=== PATIENT | male | born 1945 | race Caucasian/White ===

== ENCOUNTER 2021-02-24 11:21 | Emergency (ER) | payer MEDICARE, MEDICAID ==
[~2021-02-24] VITALS: Ht 180.3 cm; Wt 87.0 kg
[2021-02-24 12:31] LABS: EOSINOPHILS % 6.2 % (0.0-5.0); HEMATOCRIT. 47.4 % (42.0-52.0); LYMPHOCYTES % 38.4 % (20.0-50.0); MEAN CORPUSCULAR HEMOGLOBIN 31.3 pg (28.0-32.0); MEAN CORPUSCULAR VOLUME 92.8 fL (80.0-94.0); MEAN PLATELET VOLUME 8.8 fl (7.4-10.4); MONOCYTES % 6.6 % (2.0-8.0); NEUTROPHILS % 47.8 % (40.0-76.0); PLATELET 169 x1000/uL (130-400); RED BLOOD CELL COUNT 5.11 mill/uL (4.7-6.1); RED CELL DISTRIBUTION WIDTH 12.8 % (11.6-14.6)
[2021-02-24 12:37] LABS: CHLORIDE 104 mEq/L (98-107)
[2021-02-24] MEDS ORDERED: MECLIZINE 25MG TABLET PO ONE (13:30)
[2021-02-24] MEDS ORDERED: DEXTROSE 50% WATER 50ML SYRINGE IV ONE (15:15)
[2021-02-24 21:16] VITALS: BP 153/80
== END 2021-02-24 22:00 | disposition short-term general hospital (02) ==
LOC: ER 11:21 → CANBEDREQ 02-25 07:31
DX: E16.2 Hypoglycemia, unspecified (principal); R42 Dizziness and giddiness; I10 Essential (primary) hypertension; F41.9 Anxiety disorder, unspecified; F32.A Depression, unspecified; E78.00 Pure hypercholesterolemia, unspecified; I25.2 Old myocardial infarction; Z98.61 Coronary angioplasty status
CPT/HCPCS: 36415; 70450; 71045; 80053; 82962; 83880; 84484; 85025; 93005; 99285; Z7610; J8597

== ENCOUNTER 2021-03-09 10:18 | Inpatient (IN) | payer MEDICARE, OTHER ==
[~2021-03-09] VITALS: Ht 172.7 cm; Wt 81.3 kg
[2021-03-09 11:18] LABS: BASOPHILS % 0.9 % (0.0-2.0); HEMATOCRIT. 49.1 % (42.0-52.0); HEMOGLOBIN. 16.6 g/dL (14.0-18.0); LYMPHOCYTES % 32.6 % (20.0-50.0); MEAN CORPUSCULAR HEMOGLOBIN 31.4 pg (28.0-32.0); MEAN PLATELET VOLUME 9.6 fl (7.4-10.4); MONOCYTES % 8.1 % (2.0-8.0); NEUTROPHILS % 54.4 % (40.0-76.0); PLATELET 170 x1000/uL (130-400); RED BLOOD CELL COUNT 5.28 mill/uL (4.7-6.1)
[2021-03-09 11:29] LABS: CHLORIDE 108 mEq/L (98-107)
[2021-03-09 12:42] LABS: CLARITY URINE CLEAR (CLEAR); COLOR URINE YELLOW (YELLOW); KETONES URINE TRACE (NEGATIVE); LEUKOCYTE ESTERASE URINE NEGATIVE (NEGATIVE); NITRITE URINE NEGATIVE (NEGATIVE); OCCULT BLOOD URINE NEGATIVE (NEGATIVE); PROTEIN URINE NEGATIVE (NEGATIVE); SPECIFIC GRAVITY URINE 1.029 (1.005-1.030)
[2021-03-09] MEDS: AMLODIPINE 10MG TABLET PO SCH (17:00)
[2021-03-09] MEDS ORDERED: ONDANSETRON HCL 4MG/2ML INJ IV PRN (17:00)
[2021-03-09] MEDS ORDERED: HYDRALAZINE 20MG/ML VIAL IV PRN (17:00)
[2021-03-09] MEDS ORDERED: DEXT 5%/0.45% NACL 500ML 1,000 ML IV ONE (17:00)
[2021-03-09] MEDS: DEXT 5%/0.45% NACL 1000ML 1,000 ML IV SCH (17:30)
[2021-03-09] MEDS ORDERED: LORAZEPAM 2MG/ML CPJ IV PRN (18:30)
[2021-03-09 22:10] VITALS: BP 149/89
[2021-03-10] MEDS: DEXT 5%/0.45% NACL 1000ML 1,000 ML IV SCH ×2 (06:28→21:40)
[2021-03-10 06:40] LABS: BASOPHILS % 0.5 % (0.0-2.0); EOSINOPHILS % 4.7 % (0.0-5.0); HEMATOCRIT. 44.5 % (42.0-52.0); HEMOGLOBIN. 15.2 g/dL (14.0-18.0); MEAN CORPUSCULAR HEMOGLOBIN 31.7 pg (28.0-32.0); MEAN CORPUSCULAR VOLUME 92.4 fL (80.0-94.0); MEAN PLATELET VOLUME 9.8 fl (7.4-10.4); MONOCYTES % 8.5 % (2.0-8.0); NEUTROPHILS % 57.3 % (40.0-76.0); PLATELET 166 x1000/uL (130-400); RED BLOOD CELL COUNT 4.81 mill/uL (4.7-6.1); RED CELL DISTRIBUTION WIDTH 12.9 % (11.6-14.6)
[2021-03-10 06:41] LABS: CHLORIDE 108 mEq/L (98-107)
[2021-03-10 06:52] LABS: LDL CHOLESTEROL 107 mg/dL (5-100)
[2021-03-10 06:53] LABS: HDL CHOLESTEROL 35 mg/dL (40-59)
[2021-03-10 08:00] VITALS: BP 139/78
[2021-03-10] MEDS: AMLODIPINE 10MG TABLET PO SCH (09:00)
[2021-03-10 12:00] VITALS: BP 143/75
[2021-03-10 16:00] VITALS: BP 153/82
[2021-03-10] MEDS: ENOXAPARIN 40MG/0.4ML SYR SUBCUT SCH (19:56)
[2021-03-10 20:00] VITALS: BP 149/75
[2021-03-11] VITALS (7 sets, daily range): BP systolic 138–166; BP diastolic 72–87
[2021-03-11] MEDS ORDERED: DEXTROSE 50% WATER 50ML SYRINGE IV PRN (05:45)
[2021-03-11] MEDS: INSULIN LISPRO 100 UNITS/ML SUBCUT SCH ×4 (07:04→21:00)
[2021-03-11] MEDS: BLOOD SUGAR DIAGNOSTIC STRIP TEST SCH ×4 (07:04→21:00)
[2021-03-11] MEDS: AMLODIPINE 10MG TABLET PO SCH ×2 (09:00→09:25)
[2021-03-11] MEDS: DEXT 5%/0.45% NACL 1000ML 1,000 ML IV SCH ×2 (09:25→22:03)
[2021-03-11] MEDS: ENOXAPARIN 40MG/0.4ML SYR SUBCUT SCH (17:57)
[2021-03-11] MEDS: ACETAMINOPHEN 650MG SUPP PR PRN (22:10)
[2021-03-12] VITALS: BP 147/85
[2021-03-12] MEDS: DEXT 5%/0.45% NACL 1000ML 1,000 ML IV SCH (03:13)
[2021-03-12 04:00] VITALS: BP 153/70
[2021-03-12] MEDS: ACETAMINOPHEN 650MG SUPP PR PRN (05:38)
[2021-03-12 06:04] LABS: BASOPHILS % 0.6 % (0.0-2.0); EOSINOPHILS % 1.8 % (0.0-5.0); HEMATOCRIT. 46.7 % (42.0-52.0); HEMOGLOBIN. 15.7 g/dL (14.0-18.0); MEAN CORPUSCULAR HEMOGLOBIN 31.5 pg (28.0-32.0); MEAN CORPUSCULAR VOLUME 93.6 fL (80.0-94.0); MEAN PLATELET VOLUME 10.2 fl (7.4-10.4); MONOCYTES % 11.5 % (2.0-8.0); NEUTROPHILS % 61.1 % (40.0-76.0); PLATELET 152 x1000/uL (130-400); RED BLOOD CELL COUNT 4.99 mill/uL (4.7-6.1); RED CELL DISTRIBUTION WIDTH 13.1 % (11.6-14.6)
[2021-03-12] MEDS: INSULIN LISPRO 100 UNITS/ML SUBCUT SCH ×4 (06:29→21:00)
[2021-03-12] MEDS: BLOOD SUGAR DIAGNOSTIC STRIP TEST SCH ×4 (06:29→21:00)
[2021-03-12 07:40] LABS: CHLORIDE 108 mEq/L (98-107)
[2021-03-12 08:00] VITALS: BP 140/75
[2021-03-12] MEDS: AMLODIPINE 10MG TABLET PO SCH (09:00)
[2021-03-12] MEDS ORDERED: IPRATROPIUM/ALBUTEROL 0.5-3(2.5)MG/3ML NEB HHN PRN (10:00)
[2021-03-12] MEDS: HYDRALAZINE 20MG/ML VIAL IV SCH ×2 (11:02→17:04)
[2021-03-12 12:00] VITALS: BP 148/70
[2021-03-12 16:00] VITALS: BP 146/84
[2021-03-12] MEDS: ENOXAPARIN 40MG/0.4ML SYR SUBCUT SCH (16:27)
[2021-03-12 20:00] VITALS: BP 145/85
[2021-03-12] MEDS: PANTOPRAZOLE SODIUM 40 MG/VIAL IV SCH (21:57)
[2021-03-13] VITALS: BP 154/83
[2021-03-13] MEDS: DEXT 5%/0.45% NACL 1000ML 1,000 ML IV SCH ×2 (01:00→13:36)
[2021-03-13 04:00] VITALS: BP 148/87
[2021-03-13] MEDS: HYDRALAZINE 20MG/ML VIAL IV SCH ×4 (06:00→17:07)
[2021-03-13 06:52] LABS: INR 1.1; PROTHROMBIN TIME 11.6 sec (9.6-11.0)
[2021-03-13 06:57] LABS: BASOPHILS % 0.4 % (0.0-2.0); EOSINOPHILS % 1.1 % (0.0-5.0); HEMATOCRIT. 47.6 % (42.0-52.0); HEMOGLOBIN. 16.6 g/dL (14.0-18.0); LYMPHOCYTES % 18.5 % (20.0-50.0); MEAN CORPUSCULAR HEMOGLOBIN 32.2 pg (28.0-32.0); MEAN CORPUSCULAR VOLUME 92.7 fL (80.0-94.0); MEAN PLATELET VOLUME 9.5 fl (7.4-10.4); MONOCYTES % 8.4 % (2.0-8.0); NEUTROPHILS % 71.6 % (40.0-76.0); PLATELET 150 x1000/uL (130-400); RED BLOOD CELL COUNT 5.14 mill/uL (4.7-6.1)
[2021-03-13] MEDS: AMLODIPINE 10MG TABLET PO SCH (07:12)
[2021-03-13] MEDS: INSULIN LISPRO 100 UNITS/ML SUBCUT SCH ×4 (07:12→20:23)
[2021-03-13] MEDS: BLOOD SUGAR DIAGNOSTIC STRIP TEST SCH ×4 (07:12→20:12)
[2021-03-13 07:14] LABS: CHLORIDE 109 mEq/L (98-107)
[2021-03-13 08:00] VITALS: BP 147/88
[2021-03-13] MEDS: PANTOPRAZOLE SODIUM 40 MG/VIAL IV SCH ×2 (09:32→20:18)
[2021-03-13] MEDS ORDERED: CEFAZOLIN 1000MG PREMIX 50 ML IV ONE (10:00)
[2021-03-13] MEDS ORDERED: PROPOFOL 200MG/20ML VIAL IV ONE (11:44)
[2021-03-13] MEDS ORDERED: LIDOCAINE HCL 1% 20ML VIAL (Pyxis) INJ ONE (12:03)
[2021-03-13] MEDS ORDERED: DEXAMETHASONE 4MG/ML 1ML VIAL ONE (12:03)
[2021-03-13] MEDS ORDERED: ONDANSETRON HCL 4MG/2ML INJ ONE (12:03)
[2021-03-13 13:15] VITALS: BP 179/87
[2021-03-13 16:00] VITALS: BP 140/76
[2021-03-13] MEDS: ENOXAPARIN 40MG/0.4ML SYR SUBCUT SCH (17:06)
[2021-03-13 20:00] VITALS: BP 141/78
[2021-03-14] VITALS: BP 98/58
[2021-03-14] MEDS: HYDRALAZINE 20MG/ML VIAL IV SCH ×2 (00:41→05:26)
[2021-03-14] MEDS: DEXT 5%/0.45% NACL 1000ML 1,000 ML IV SCH (02:34)
[2021-03-14 04:00] VITALS: BP 152/84
[2021-03-14] MEDS: BLOOD SUGAR DIAGNOSTIC STRIP TEST SCH ×4 (05:20→20:36)
[2021-03-14] MEDS: METOCLOPRAMIDE HCL 10MG/2ML VIAL IV SCH ×4 (05:26→23:15)
[2021-03-14] MEDS: INSULIN LISPRO 100 UNITS/ML SUBCUT SCH ×4 (05:47→20:36)
[2021-03-14 08:00] VITALS: BP 138/76
[2021-03-14] MEDS: AMLODIPINE 10MG TABLET PO SCH (09:28)
[2021-03-14] MEDS: PANTOPRAZOLE SODIUM 40 MG/VIAL IV SCH ×2 (09:28→20:36)
[2021-03-14] MEDS: ASPIRIN 81MG TABLET PO SCH (10:11)
[2021-03-14 12:00] VITALS: BP 129/75
[2021-03-14] MEDS: HYDRALAZINE HCL 10MG TABLET PO SCH ×2 (14:26→21:22)
[2021-03-14 16:00] VITALS: BP 140/79
[2021-03-14] MEDS: ENOXAPARIN 40MG/0.4ML SYR SUBCUT SCH (18:27)
[2021-03-14 20:00] VITALS: BP 144/85
[2021-03-15] VITALS: BP 137/75
[2021-03-15 04:00] VITALS: BP 116/72
[2021-03-15] MEDS: HYDRALAZINE HCL 10MG TABLET PO SCH ×3 (05:44→22:31)
[2021-03-15] MEDS: METOCLOPRAMIDE HCL 10MG/2ML VIAL IV SCH ×3 (05:44→16:47)
[2021-03-15 05:53] LABS: BASOPHILS % 0.7 % (0.0-2.0); EOSINOPHILS % 0.2 % (0.0-5.0); HEMATOCRIT. 47.3 % (42.0-52.0); HEMOGLOBIN. 16.3 g/dL (14.0-18.0); LYMPHOCYTES % 15.8 % (20.0-50.0); MEAN CORPUSCULAR HEMOGLOBIN 32.4 pg (28.0-32.0); MEAN CORPUSCULAR VOLUME 93.9 fL (80.0-94.0); MEAN PLATELET VOLUME 10.1 fl (7.4-10.4); MONOCYTES % 10.3 % (2.0-8.0); PLATELET 161 x1000/uL (130-400); RED BLOOD CELL COUNT 5.03 mill/uL (4.7-6.1); RED CELL DISTRIBUTION WIDTH 13.4 % (11.6-14.6)
[2021-03-15 06:02] LABS: CHLORIDE 107 mEq/L (98-107)
[2021-03-15] MEDS: BLOOD SUGAR DIAGNOSTIC STRIP TEST SCH ×4 (06:31→20:45)
[2021-03-15] MEDS: INSULIN LISPRO 100 UNITS/ML SUBCUT SCH ×4 (06:32→20:43)
[2021-03-15 07:54] VITALS: BP 112/80
[2021-03-15] MEDS: ASPIRIN 81MG TABLET PO SCH (08:28)
[2021-03-15] MEDS: AMLODIPINE 10MG TABLET PO SCH (08:28)
[2021-03-15] MEDS: PANTOPRAZOLE SODIUM 40 MG/VIAL IV SCH ×2 (08:28→20:42)
[2021-03-15] MEDS: ACETAMINOPHEN 325MG TABLET PO PRN ×2 (08:29→15:50)
[2021-03-15] MEDS ORDERED: VANCOMYCIN 1250MG in DEXTROSE 5% WATER 250ML IV SCH (10:00)
[2021-03-15] MEDS ORDERED: PIPERACILLIN/TAZOBACTAM 3.375G in DEXT 5% WATER 50ML IV SCH (11:30)
[2021-03-15 12:00] VITALS: BP 129/78
[2021-03-15 15:53] VITALS: BP 135/90
[2021-03-15] MEDS: PIPERACILLIN/TAZOBACTAM 3.375 G in DEXTROSE 5% WATER 50 ML IV SCH ×2 (16:46→22:46)
[2021-03-15] MEDS: ENOXAPARIN 40MG/0.4ML SYR SUBCUT SCH (16:47)
[2021-03-15 20:00] VITALS: BP 137/89
[2021-03-15] MEDS: VANCOMYCIN 750 MG PREMIX 150 ML IV SCH (20:42)
[2021-03-16] VITALS (7 sets, daily range): BP systolic 121–165; BP diastolic 57–98
[2021-03-16] MEDS: METOCLOPRAMIDE HCL 10MG/2ML VIAL IV SCH ×5 (00:17→23:21)
[2021-03-16] MEDS: ACETAMINOPHEN 325MG TABLET PO PRN ×2 (04:40→20:13)
[2021-03-16] MEDS: PIPERACILLIN/TAZOBACTAM 3.375 G in DEXTROSE 5% WATER 50 ML IV SCH ×3 (05:22→21:37)
[2021-03-16] MEDS: HYDRALAZINE HCL 10MG TABLET PO SCH ×3 (05:22→21:37)
[2021-03-16 06:55] LABS: BASOPHILS % 0.7 % (0.0-2.0); EOSINOPHILS % 0.4 % (0.0-5.0); HEMATOCRIT. 48.3 % (42.0-52.0); HEMOGLOBIN. 16.9 g/dL (14.0-18.0); LYMPHOCYTES % 18.7 % (20.0-50.0); MEAN CORPUSCULAR HEMOGLOBIN 32.8 pg (28.0-32.0); MEAN CORPUSCULAR VOLUME 93.5 fL (80.0-94.0); MEAN PLATELET VOLUME 9.3 fl (7.4-10.4); MONOCYTES % 13.9 % (2.0-8.0); NEUTROPHILS % 66.3 % (40.0-76.0); PLATELET 185 x1000/uL (130-400); RED BLOOD CELL COUNT 5.16 mill/uL (4.7-6.1)
[2021-03-16] MEDS: INSULIN LISPRO 100 UNITS/ML SUBCUT SCH ×4 (06:57→20:28)
[2021-03-16] MEDS: BLOOD SUGAR DIAGNOSTIC STRIP TEST SCH ×4 (06:57→20:28)
[2021-03-16 07:22] LABS: CHLORIDE 107 mEq/L (98-107)
[2021-03-16] MEDS: FAMOTIDINE 20MG/2ML VIAL IV SCH ×2 (08:14→20:13)
[2021-03-16] MEDS: AMLODIPINE 10MG TABLET PO SCH (08:14)
[2021-03-16] MEDS: ASPIRIN 81MG TABLET PO SCH (08:14)
[2021-03-16] MEDS: VANCOMYCIN 750 MG PREMIX 150 ML IV SCH ×2 (08:14→20:13)
[2021-03-16] MEDS: ENOXAPARIN 40MG/0.4ML SYR SUBCUT SCH (17:13)
[2021-03-17] VITALS: BP 128/76
[2021-03-17 04:00] VITALS: BP 132/79
[2021-03-17] MEDS: METOCLOPRAMIDE HCL 10MG/2ML VIAL IV SCH ×2 (05:23→13:15)
[2021-03-17] MEDS: HYDRALAZINE HCL 10MG TABLET PO SCH ×3 (05:23→21:18)
[2021-03-17] MEDS: PIPERACILLIN/TAZOBACTAM 3.375 G in DEXTROSE 5% WATER 50 ML IV SCH ×3 (05:24→23:09)
[2021-03-17] MEDS: BLOOD SUGAR DIAGNOSTIC STRIP TEST SCH ×4 (06:18→21:17)
[2021-03-17] MEDS: INSULIN LISPRO 100 UNITS/ML SUBCUT SCH ×4 (06:18→21:00)
[2021-03-17 07:01] LABS: HEMATOCRIT. 51.2 % (42.0-52.0); HEMOGLOBIN. 16.4 g/dL (14.0-18.0); MEAN CORPUSCULAR HEMOGLOBIN 30.4 pg (28.0-32.0); MEAN CORPUSCULAR VOLUME 94.6 fL (80.0-94.0); RED BLOOD CELL COUNT 5.41 mill/uL (4.7-6.1); RED CELL DISTRIBUTION WIDTH 13.3 % (11.6-14.6)
[2021-03-17 07:37] LABS: CHLORIDE 107 mEq/L (98-107)
[2021-03-17 07:51] VITALS: BP 124/78
[2021-03-17] MEDS: VANCOMYCIN 750 MG PREMIX 150 ML IV SCH (08:17)
[2021-03-17] MEDS: ACETAMINOPHEN 325MG TABLET PO PRN (08:18)
[2021-03-17] MEDS: ASPIRIN 81MG TABLET PO SCH (08:18)
[2021-03-17] MEDS: FAMOTIDINE 20MG/2ML VIAL IV SCH ×2 (08:18→21:17)
[2021-03-17] MEDS: AMLODIPINE 10MG TABLET PO SCH (08:19)
[2021-03-17 10:28] LABS: PLATELET 190 x1000/uL (130-400)
[2021-03-17 10:38] LABS: ATYPICAL LYMPHOCYTES 17; NUCLEATED RED BLOOD CELLS 1 /100 WBC
[2021-03-17 11:57] VITALS: BP 127/75
[2021-03-17] MEDS: VANCOMYCIN 1 G PREMIX 200 ML IV SCH ×2 (15:12→15:54)
[2021-03-17] MEDS ORDERED: ACETAMINOPHEN 650MG SUPP PR PRN (15:45)
[2021-03-17 16:09] VITALS: BP 130/71
[2021-03-17] MEDS: ENOXAPARIN 40MG/0.4ML SYR SUBCUT SCH (16:48)
[2021-03-17 20:00] VITALS: BP 129/83
[2021-03-18] VITALS: BP 118/74
[2021-03-18] MEDS: METOCLOPRAMIDE HCL 10MG/2ML VIAL IV SCH ×6 (00:02→23:42)
[2021-03-18 04:00] VITALS: BP 107/60
[2021-03-18] MEDS: HYDRALAZINE HCL 10MG TABLET PO SCH ×3 (05:30→21:22)
[2021-03-18] MEDS: VANCOMYCIN 1 G PREMIX 200 ML IV SCH ×2 (05:32→17:38)
[2021-03-18] MEDS: PIPERACILLIN/TAZOBACTAM 3.375 G in DEXTROSE 5% WATER 50 ML IV SCH ×3 (07:14→21:21)
[2021-03-18] MEDS: BLOOD SUGAR DIAGNOSTIC STRIP TEST SCH ×4 (07:39→21:09)
[2021-03-18] MEDS: INSULIN LISPRO 100 UNITS/ML SUBCUT SCH ×4 (07:39→21:00)
[2021-03-18 08:00] VITALS: BP 118/68
[2021-03-18] MEDS: ASPIRIN 81MG TABLET PO SCH (08:57)
[2021-03-18] MEDS: FAMOTIDINE 20MG/2ML VIAL IV SCH ×2 (08:58→21:08)
[2021-03-18] MEDS: AMLODIPINE 10MG TABLET PO SCH (08:58)
[2021-03-18 12:00] VITALS: BP 101/75
[2021-03-18 16:30] VITALS: BP 121/70
[2021-03-18] MEDS: ENOXAPARIN 40MG/0.4ML SYR SUBCUT SCH (17:39)
[2021-03-18 20:00] VITALS: BP 135/75
[2021-03-19] VITALS: BP 134/76
[2021-03-19 04:00] VITALS: BP 129/76
[2021-03-19] MEDS: VANCOMYCIN 1 G PREMIX 200 ML IV SCH ×2 (05:22→18:19)
[2021-03-19] MEDS: HYDRALAZINE HCL 10MG TABLET PO SCH ×3 (05:22→21:36)
[2021-03-19] MEDS: METOCLOPRAMIDE HCL 10MG/2ML VIAL IV SCH ×3 (05:22→18:19)
[2021-03-19] MEDS: PIPERACILLIN/TAZOBACTAM 3.375 G in DEXTROSE 5% WATER 50 ML IV SCH ×3 (07:21→21:37)
[2021-03-19] MEDS: INSULIN LISPRO 100 UNITS/ML SUBCUT SCH ×4 (07:21→21:00)
[2021-03-19] MEDS: BLOOD SUGAR DIAGNOSTIC STRIP TEST SCH ×4 (07:21→21:14)
[2021-03-19 07:56] LABS: CHLORIDE 110 mEq/L (98-107)
[2021-03-19 08:00] VITALS: BP 136/72
[2021-03-19 08:07] LABS: VANCOMYCIN TROUGH 32.6 ug/mL (5.0-10.0)
[2021-03-19] MEDS: FAMOTIDINE 20MG/2ML VIAL IV SCH ×2 (09:23→21:36)
[2021-03-19] MEDS: ASPIRIN 81MG TABLET PO SCH (09:23)
[2021-03-19] MEDS: AMLODIPINE 10MG TABLET PO SCH (09:23)
[2021-03-19 12:00] VITALS: BP 127/83
[2021-03-19 16:00] VITALS: BP 121/71
[2021-03-19] MEDS: ENOXAPARIN 40MG/0.4ML SYR SUBCUT SCH (18:23)
[2021-03-19 20:00] VITALS: BP 150/81
[2021-03-20] VITALS: BP 155/95
[2021-03-20] MEDS: METOCLOPRAMIDE HCL 10MG/2ML VIAL IV SCH ×4 (00:10→18:17)
[2021-03-20 04:00] VITALS: BP 148/86
[2021-03-20] MEDS: PIPERACILLIN/TAZOBACTAM 3.375 G in DEXTROSE 5% WATER 50 ML IV SCH ×3 (05:43→21:46)
[2021-03-20] MEDS: VANCOMYCIN 1 G PREMIX 200 ML IV SCH ×2 (05:43→19:24)
[2021-03-20] MEDS: HYDRALAZINE HCL 10MG TABLET PO SCH ×3 (05:44→21:46)
[2021-03-20] MEDS: BLOOD SUGAR DIAGNOSTIC STRIP TEST SCH ×4 (06:10→21:00)
[2021-03-20] MEDS: INSULIN LISPRO 100 UNITS/ML SUBCUT SCH ×4 (06:43→21:00)
[2021-03-20 08:00] VITALS: BP 146/84
[2021-03-20 08:30] LABS: BASOPHILS % 0.6 % (0.0-2.0); HEMATOCRIT. 48.5 % (42.0-52.0); HEMOGLOBIN. 16.2 g/dL (14.0-18.0); LYMPHOCYTES % 18.7 % (20.0-50.0); MEAN CORPUSCULAR HEMOGLOBIN 31.4 pg (28.0-32.0); MEAN CORPUSCULAR VOLUME 93.8 fL (80.0-94.0); MEAN PLATELET VOLUME 9.3 fl (7.4-10.4); NEUTROPHILS % 66.7 % (40.0-76.0); PLATELET 252 x1000/uL (130-400); RED BLOOD CELL COUNT 5.17 mill/uL (4.7-6.1); RED CELL DISTRIBUTION WIDTH 13.1 % (11.6-14.6)
[2021-03-20] MEDS: FAMOTIDINE 20MG/2ML VIAL IV SCH ×2 (09:37→20:27)
[2021-03-20] MEDS: ASPIRIN 81MG TABLET PO SCH (09:37)
[2021-03-20] MEDS: AMLODIPINE 10MG TABLET PO SCH (09:38)
[2021-03-20] MEDS: ACETAMINOPHEN 325MG TABLET PO PRN (09:39)
[2021-03-20 11:07] LABS: CHLORIDE 110 mEq/L (98-107)
[2021-03-20 12:00] VITALS: BP 152/86
[2021-03-20 16:00] VITALS: BP 150/80
[2021-03-20] MEDS: ENOXAPARIN 40MG/0.4ML SYR SUBCUT SCH (18:17)
[2021-03-20 20:00] VITALS: BP 141/78
[2021-03-21] VITALS: BP 127/75
[2021-03-21] MEDS: METOCLOPRAMIDE HCL 10MG/2ML VIAL IV SCH ×5 (00:11→23:11)
[2021-03-21 04:00] VITALS: BP 155/88
[2021-03-21] MEDS: HYDRALAZINE HCL 10MG TABLET PO SCH ×3 (05:50→22:24)
[2021-03-21] MEDS: BLOOD SUGAR DIAGNOSTIC STRIP TEST SCH ×4 (06:15→21:00)
[2021-03-21] MEDS: INSULIN LISPRO 100 UNITS/ML SUBCUT SCH ×4 (06:57→21:00)
[2021-03-21 08:00] VITALS: BP 131/72
[2021-03-21] MEDS: AMLODIPINE 10MG TABLET PO SCH (09:17)
[2021-03-21] MEDS: FAMOTIDINE 20MG/2ML VIAL IV SCH ×2 (09:17→22:24)
[2021-03-21] MEDS: ASPIRIN 81MG TABLET PO SCH (09:17)
[2021-03-21 12:00] VITALS: BP 110/65
[2021-03-21 16:00] VITALS: BP 138/75
[2021-03-21] MEDS: ENOXAPARIN 40MG/0.4ML SYR SUBCUT SCH (17:25)
[2021-03-21 20:00] VITALS: BP 139/85
[2021-03-22] VITALS: BP 127/79
[2021-03-22 04:00] VITALS: BP 121/87
[2021-03-22] MEDS: BLOOD SUGAR DIAGNOSTIC STRIP TEST SCH ×4 (06:08→20:54)
[2021-03-22] MEDS: METOCLOPRAMIDE HCL 10MG/2ML VIAL IV SCH (06:37)
[2021-03-22] MEDS: HYDRALAZINE HCL 10MG TABLET PO SCH ×3 (06:38→21:18)
[2021-03-22] MEDS: INSULIN LISPRO 100 UNITS/ML SUBCUT SCH ×4 (06:51→20:54)
[2021-03-22 08:00] VITALS: BP 146/92
[2021-03-22] MEDS: ASPIRIN 81MG TABLET PO SCH (09:21)
[2021-03-22] MEDS: FAMOTIDINE 20MG/2ML VIAL IV SCH ×2 (09:21→20:54)
[2021-03-22] MEDS: AMLODIPINE 10MG TABLET PO SCH (09:22)
[2021-03-22] MEDS ORDERED: LOPERAMIDE HCL 2MG CAPSULE PO PRN (10:30)
[2021-03-22 12:00] VITALS: BP 130/83
[2021-03-22 16:00] VITALS: BP 134/81
[2021-03-22] MEDS: ENOXAPARIN 40MG/0.4ML SYR SUBCUT SCH (17:34)
[2021-03-22 20:00] VITALS: BP 140/85
[2021-03-23] VITALS: BP 131/82
[2021-03-23 04:00] VITALS: BP 125/84
[2021-03-23] MEDS: HYDRALAZINE HCL 10MG TABLET PO SCH ×3 (05:26→21:48)
[2021-03-23] MEDS: BLOOD SUGAR DIAGNOSTIC STRIP TEST SCH ×4 (06:14→20:26)
[2021-03-23] MEDS: INSULIN LISPRO 100 UNITS/ML SUBCUT SCH ×4 (06:14→20:26)
[2021-03-23 08:00] VITALS: BP 111/84
[2021-03-23] MEDS: AMLODIPINE 10MG TABLET PO SCH (08:49)
[2021-03-23] MEDS: FAMOTIDINE 20MG/2ML VIAL IV SCH ×2 (08:49→20:26)
[2021-03-23] MEDS: ASPIRIN 81MG TABLET PO SCH (08:49)
[2021-03-23 12:00] VITALS: BP 132/81
[2021-03-23 16:00] VITALS: BP 140/84
[2021-03-23] MEDS: ENOXAPARIN 40MG/0.4ML SYR SUBCUT SCH (17:16)
[2021-03-23 20:00] VITALS: BP 139/83
[2021-03-23] MEDS: ACETAMINOPHEN 325MG TABLET PO PRN (21:48)
[2021-03-24] VITALS: BP 120/81
[2021-03-24 04:00] VITALS: BP 123/65
[2021-03-24] MEDS: HYDRALAZINE HCL 10MG TABLET PO SCH ×3 (05:38→21:23)
[2021-03-24] MEDS: BLOOD SUGAR DIAGNOSTIC STRIP TEST SCH ×4 (07:10→21:23)
[2021-03-24] MEDS: INSULIN LISPRO 100 UNITS/ML SUBCUT SCH ×4 (07:40→21:25)
[2021-03-24 07:55] LABS: HEMATOCRIT. 54.3 % (42.0-52.0); HEMOGLOBIN. 18.5 g/dL (14.0-18.0); MEAN CORPUSCULAR HEMOGLOBIN 31.6 pg (28.0-32.0); MEAN CORPUSCULAR VOLUME 92.9 fL (80.0-94.0); MEAN PLATELET VOLUME 8.9 fl (7.4-10.4); PLATELET 277 x1000/uL (130-400); RED BLOOD CELL COUNT 5.85 mill/uL (4.7-6.1); RED CELL DISTRIBUTION WIDTH 13.1 % (11.6-14.6)
[2021-03-24 08:00] VITALS: BP 142/82
[2021-03-24 08:36] LABS: CHLORIDE 107 mEq/L (98-107)
[2021-03-24] MEDS: AMLODIPINE 10MG TABLET PO SCH (09:19)
[2021-03-24] MEDS: FAMOTIDINE 20MG/2ML VIAL IV SCH ×2 (09:19→21:22)
[2021-03-24] MEDS: ASPIRIN 81MG TABLET PO SCH (09:19)
[2021-03-24] MEDS: ACETAMINOPHEN 325MG TABLET PO PRN (09:19)
[2021-03-24 12:00] VITALS: BP 128/80
[2021-03-24] MEDS: SODIUM CHLORIDE 0.9% 1,000 ML IV SCH (13:10)
[2021-03-24 14:53] LABS: PLATELET ESTIMATE NORMAL
[2021-03-24 16:00] VITALS: BP 114/78
[2021-03-24] MEDS: ENOXAPARIN 40MG/0.4ML SYR SUBCUT SCH (16:45)
[2021-03-24 20:00] VITALS: BP 101/77
[2021-03-25] VITALS: BP 119/77
[2021-03-25] MEDS: SODIUM CHLORIDE 0.9% 1,000 ML IV SCH (03:03)
[2021-03-25 04:00] VITALS: BP 109/71
[2021-03-25] MEDS: HYDRALAZINE HCL 10MG TABLET PO SCH ×3 (05:30→23:18)
[2021-03-25] MEDS: BLOOD SUGAR DIAGNOSTIC STRIP TEST SCH ×4 (07:07→16:59)
[2021-03-25] MEDS: INSULIN LISPRO 100 UNITS/ML SUBCUT SCH ×4 (07:07→21:00)
[2021-03-25 07:38] LABS: BASOPHILS % 0.7 % (0.0-2.0); HEMATOCRIT. 48.6 % (42.0-52.0); HEMOGLOBIN. 16.3 g/dL (14.0-18.0); LYMPHOCYTES % 21.1 % (20.0-50.0); MEAN CORPUSCULAR HEMOGLOBIN 31.5 pg (28.0-32.0); MEAN CORPUSCULAR VOLUME 93.8 fL (80.0-94.0); MEAN PLATELET VOLUME 9.6 fl (7.4-10.4); MONOCYTES % 9.1 % (2.0-8.0); NEUTROPHILS % 69.1 % (40.0-76.0); PLATELET 252 x1000/uL (130-400); RED BLOOD CELL COUNT 5.18 mill/uL (4.7-6.1); RED CELL DISTRIBUTION WIDTH 13.4 % (11.6-14.6)
[2021-03-25 08:00] VITALS: BP 112/66
[2021-03-25] MEDS: FAMOTIDINE 20MG/2ML VIAL IV SCH ×2 (09:18→23:18)
[2021-03-25] MEDS: AMLODIPINE 10MG TABLET PO SCH (09:18)
[2021-03-25] MEDS: ASPIRIN 81MG TABLET PO SCH (09:18)
[2021-03-25 12:00] VITALS: BP 106/64
[2021-03-25 16:00] VITALS: BP 115/65
[2021-03-25] MEDS: ENOXAPARIN 40MG/0.4ML SYR SUBCUT SCH (16:59)
[2021-03-25 20:00] VITALS: BP 134/74
[2021-03-26] VITALS: BP 118/80
[2021-03-26 04:00] VITALS: BP 121/69
[2021-03-26] MEDS: HYDRALAZINE HCL 10MG TABLET PO SCH ×3 (07:05→21:50)
[2021-03-26] MEDS: INSULIN LISPRO 100 UNITS/ML SUBCUT SCH ×4 (07:12→21:00)
[2021-03-26] MEDS: BLOOD SUGAR DIAGNOSTIC STRIP TEST SCH ×4 (07:12→21:48)
[2021-03-26 08:00] VITALS: BP 123/83
[2021-03-26 08:22] LABS: CHLORIDE 114 mEq/L (98-107)
[2021-03-26 08:41] LABS: BASOPHILS % 0.9 % (0.0-2.0); EOSINOPHILS % 0.2 % (0.0-5.0); HEMATOCRIT. 46.4 % (42.0-52.0); HEMOGLOBIN. 15.9 g/dL (14.0-18.0); LYMPHOCYTES % 23.7 % (20.0-50.0); MEAN CORPUSCULAR HEMOGLOBIN 31.7 pg (28.0-32.0); MEAN CORPUSCULAR VOLUME 92.9 fL (80.0-94.0); MEAN PLATELET VOLUME 9.7 fl (7.4-10.4); MONOCYTES % 8.2 % (2.0-8.0); PLATELET 246 x1000/uL (130-400); RED CELL DISTRIBUTION WIDTH 13.3 % (11.6-14.6)
[2021-03-26] MEDS: FAMOTIDINE 20MG/2ML VIAL IV SCH ×2 (09:35→21:50)
[2021-03-26] MEDS: ASPIRIN 81MG TABLET PO SCH (09:35)
[2021-03-26] MEDS: AMLODIPINE 10MG TABLET PO SCH (09:36)
[2021-03-26] MEDS ORDERED: BISACODYL 10MG SUPP PR PRN (11:15)
[2021-03-26 12:00] VITALS: BP 116/68
[2021-03-26] MEDS: POLYETHYLENE GLYCOL 3350 (17GM) 1 DOSE PACK PO SCH (13:44)
[2021-03-26] MEDS: DOCUSATE SODIUM SUGAR FREE 100MG/10ML UDC NG SCH (13:44)
[2021-03-26] MEDS: METOCLOPRAMIDE HCL 10MG/2ML VIAL IV SCH ×3 (13:54→23:18)
[2021-03-26 16:00] VITALS: BP 112/65
[2021-03-26] MEDS: ENOXAPARIN 40MG/0.4ML SYR SUBCUT SCH (17:28)
[2021-03-26 20:00] VITALS: BP 100/66
[2021-03-27] VITALS: BP 101/60
[2021-03-27 04:00] VITALS: BP 146/74
[2021-03-27] MEDS: HYDRALAZINE HCL 10MG TABLET PO SCH ×3 (05:49→21:06)
[2021-03-27] MEDS: INSULIN LISPRO 100 UNITS/ML SUBCUT SCH ×4 (05:49→21:00)
[2021-03-27] MEDS: BLOOD SUGAR DIAGNOSTIC STRIP TEST SCH ×4 (05:49→21:05)
[2021-03-27] MEDS: METOCLOPRAMIDE HCL 10MG/2ML VIAL IV SCH ×3 (05:49→19:41)
[2021-03-27 08:00] VITALS: BP 131/78
[2021-03-27 08:02] LABS: BASOPHILS % 0.7 % (0.0-2.0); EOSINOPHILS % 0.2 % (0.0-5.0); HEMATOCRIT. 48.2 % (42.0-52.0); HEMOGLOBIN. 16.4 g/dL (14.0-18.0); LYMPHOCYTES % 26.9 % (20.0-50.0); MEAN CORPUSCULAR HEMOGLOBIN 31.5 pg (28.0-32.0); MEAN CORPUSCULAR VOLUME 92.6 fL (80.0-94.0); MEAN PLATELET VOLUME 9.9 fl (7.4-10.4); MONOCYTES % 6.9 % (2.0-8.0); NEUTROPHILS % 65.3 % (40.0-76.0); PLATELET 276 x1000/uL (130-400); RED BLOOD CELL COUNT 5.21 mill/uL (4.7-6.1); RED CELL DISTRIBUTION WIDTH 12.8 % (11.6-14.6)
[2021-03-27 08:13] LABS: CHLORIDE 113 mEq/L (98-107)
[2021-03-27] MEDS: AMLODIPINE 10MG TABLET PO SCH (10:10)
[2021-03-27] MEDS: FAMOTIDINE 20MG/2ML VIAL IV SCH ×2 (10:10→21:05)
[2021-03-27] MEDS: ASPIRIN 81MG TABLET PO SCH (10:10)
[2021-03-27] MEDS: DOCUSATE SODIUM SUGAR FREE 100MG/10ML UDC NG SCH (10:11)
[2021-03-27] MEDS: POLYETHYLENE GLYCOL 3350 (17GM) 1 DOSE PACK PO SCH (10:17)
[2021-03-27 12:00] VITALS: BP 136/73
[2021-03-27 16:00] VITALS: BP 104/68
[2021-03-27] MEDS: ENOXAPARIN 40MG/0.4ML SYR SUBCUT SCH (19:43)
[2021-03-27 20:00] VITALS: BP 138/75
[2021-03-28] VITALS: BP 114/68
[2021-03-28] MEDS: METOCLOPRAMIDE HCL 10MG/2ML VIAL IV SCH ×5 (00:40→23:48)
[2021-03-28 04:00] VITALS: BP 135/77
[2021-03-28] MEDS: BLOOD SUGAR DIAGNOSTIC STRIP TEST SCH ×4 (05:13→20:37)
[2021-03-28] MEDS: HYDRALAZINE HCL 10MG TABLET PO SCH ×3 (05:13→20:37)
[2021-03-28] MEDS: INSULIN LISPRO 100 UNITS/ML SUBCUT SCH ×4 (05:15→20:38)
[2021-03-28 08:00] VITALS: BP 140/90
[2021-03-28] MEDS: ASPIRIN 81MG TABLET PO SCH (10:22)
[2021-03-28] MEDS: FAMOTIDINE 20MG/2ML VIAL IV SCH ×2 (10:22→20:37)
[2021-03-28] MEDS: DOCUSATE SODIUM SUGAR FREE 100MG/10ML UDC NG SCH (10:22)
[2021-03-28] MEDS: AMLODIPINE 10MG TABLET PO SCH (10:23)
[2021-03-28] MEDS: POLYETHYLENE GLYCOL 3350 (17GM) 1 DOSE PACK PO SCH (10:23)
[2021-03-28] MEDS ORDERED: LACTULOSE 20G/30ML UDC PO PRN (10:30)
[2021-03-28 12:00] VITALS: BP 130/85
[2021-03-28 16:00] VITALS: BP 158/89
[2021-03-28] MEDS: ENOXAPARIN 40MG/0.4ML SYR SUBCUT SCH (18:01)
[2021-03-28 20:00] VITALS: BP 129/74
[2021-03-29] VITALS: BP 111/68
[2021-03-29 04:00] VITALS: BP 140/87
[2021-03-29] MEDS: METOCLOPRAMIDE HCL 10MG/2ML VIAL IV SCH ×3 (05:48→17:50)
[2021-03-29] MEDS: HYDRALAZINE HCL 10MG TABLET PO SCH ×3 (05:49→20:27)
[2021-03-29] MEDS: INSULIN LISPRO 100 UNITS/ML SUBCUT SCH ×4 (05:49→20:35)
[2021-03-29] MEDS: BLOOD SUGAR DIAGNOSTIC STRIP TEST SCH ×4 (05:49→20:27)
[2021-03-29 08:00] VITALS: BP 128/84
[2021-03-29] MEDS: DOCUSATE SODIUM SUGAR FREE 100MG/10ML UDC NG SCH (08:55)
[2021-03-29] MEDS: FAMOTIDINE 20MG/2ML VIAL IV SCH ×2 (08:55→20:26)
[2021-03-29] MEDS: POLYETHYLENE GLYCOL 3350 (17GM) 1 DOSE PACK PO SCH (08:55)
[2021-03-29] MEDS: ASPIRIN 81MG TABLET PO SCH (08:57)
[2021-03-29] MEDS: AMLODIPINE 10MG TABLET PO SCH (09:06)
[2021-03-29 12:00] VITALS: BP 139/94
[2021-03-29 16:00] VITALS: BP 128/80
[2021-03-29] MEDS: ENOXAPARIN 40MG/0.4ML SYR SUBCUT SCH (17:22)
[2021-03-29 20:00] VITALS: BP 147/98
[2021-03-30] VITALS: BP 141/87
[2021-03-30] MEDS: METOCLOPRAMIDE HCL 10MG/2ML VIAL IV SCH ×4 (01:45→17:04)
[2021-03-30 04:00] VITALS: BP 139/85
[2021-03-30] MEDS: BLOOD SUGAR DIAGNOSTIC STRIP TEST SCH ×4 (05:24→20:33)
[2021-03-30] MEDS: HYDRALAZINE HCL 10MG TABLET PO SCH ×3 (05:24→20:33)
[2021-03-30] MEDS: INSULIN LISPRO 100 UNITS/ML SUBCUT SCH ×4 (05:25→20:38)
[2021-03-30 08:00] VITALS: BP 120/87
[2021-03-30] MEDS: DOCUSATE SODIUM SUGAR FREE 100MG/10ML UDC NG SCH (09:29)
[2021-03-30] MEDS: ASPIRIN 81MG TABLET PO SCH (09:31)
[2021-03-30] MEDS: FAMOTIDINE 20MG/2ML VIAL IV SCH ×2 (09:31→20:33)
[2021-03-30] MEDS: AMLODIPINE 10MG TABLET PO SCH (09:31)
[2021-03-30] MEDS: POLYETHYLENE GLYCOL 3350 (17GM) 1 DOSE PACK PO SCH (09:35)
[2021-03-30 12:00] VITALS: BP 136/90
[2021-03-30 16:00] VITALS: BP 126/83
[2021-03-30] MEDS: ENOXAPARIN 40MG/0.4ML SYR SUBCUT SCH (17:05)
[2021-03-30 20:00] VITALS: BP 137/97
[2021-03-31] VITALS: BP 128/89
[2021-03-31] MEDS: METOCLOPRAMIDE HCL 10MG/2ML VIAL IV SCH ×4 (01:38→17:25)
[2021-03-31 04:00] VITALS: BP 146/99
[2021-03-31] MEDS: HYDRALAZINE HCL 10MG TABLET PO SCH ×3 (05:11→21:01)
[2021-03-31] MEDS: BLOOD SUGAR DIAGNOSTIC STRIP TEST SCH ×4 (05:11→20:38)
[2021-03-31] MEDS: INSULIN LISPRO 100 UNITS/ML SUBCUT SCH ×4 (05:11→21:01)
[2021-03-31 08:00] VITALS: BP 147/94
[2021-03-31] MEDS: ASPIRIN 81MG TABLET PO SCH (09:09)
[2021-03-31] MEDS: DOCUSATE SODIUM SUGAR FREE 100MG/10ML UDC NG SCH (09:09)
[2021-03-31] MEDS: FAMOTIDINE 20MG/2ML VIAL IV SCH ×2 (09:10→20:48)
[2021-03-31] MEDS: AMLODIPINE 10MG TABLET PO SCH (09:10)
[2021-03-31] MEDS: POLYETHYLENE GLYCOL 3350 (17GM) 1 DOSE PACK PO SCH (09:11)
[2021-03-31 12:00] VITALS: BP 138/91
[2021-03-31 16:00] VITALS: BP 126/87
[2021-03-31] MEDS: ENOXAPARIN 40MG/0.4ML SYR SUBCUT SCH (17:32)
[2021-03-31 20:00] VITALS: BP 133/82
[2021-04-01] VITALS (8 sets, daily range): BP systolic 100–151; BP diastolic 62–88
[2021-04-01] MEDS: METOCLOPRAMIDE HCL 10MG/2ML VIAL IV SCH ×4 (01:46→17:23)
[2021-04-01] MEDS: BLOOD SUGAR DIAGNOSTIC STRIP TEST SCH ×4 (05:03→19:41)
[2021-04-01] MEDS: HYDRALAZINE HCL 10MG TABLET PO SCH ×3 (05:20→21:47)
[2021-04-01] MEDS: INSULIN LISPRO 100 UNITS/ML SUBCUT SCH ×4 (05:31→21:58)
[2021-04-01] MEDS: FAMOTIDINE 20MG/2ML VIAL IV SCH ×2 (09:45→21:45)
[2021-04-01] MEDS: DOCUSATE SODIUM SUGAR FREE 100MG/10ML UDC NG SCH (09:45)
[2021-04-01] MEDS: ASPIRIN 81MG TABLET PO SCH (09:45)
[2021-04-01] MEDS: AMLODIPINE 10MG TABLET PO SCH (09:46)
[2021-04-01] MEDS: POLYETHYLENE GLYCOL 3350 (17GM) 1 DOSE PACK PO SCH (09:46)
[2021-04-01 11:02] LABS: BASOPHILS % 0.7 % (0.0-2.0); HEMATOCRIT. 59.1 % (42.0-52.0); HEMOGLOBIN. 19.1 g/dL (14.0-18.0); LYMPHOCYTES % 9.8 % (20.0-50.0); MEAN CORPUSCULAR HEMOGLOBIN 30.6 pg (28.0-32.0); MEAN CORPUSCULAR VOLUME 94.6 fL (80.0-94.0); MEAN PLATELET VOLUME 10.4 fl (7.4-10.4); MONOCYTES % 10.1 % (2.0-8.0); NEUTROPHILS % 79.4 % (40.0-76.0); PLATELET 327 x1000/uL (130-400); RED BLOOD CELL COUNT 6.25 mill/uL (4.7-6.1); RED CELL DISTRIBUTION WIDTH 13.5 % (11.6-14.6)
[2021-04-01] MEDS: ATENOLOL 25MG TABLET PO SCH ×2 (11:07→21:00)
[2021-04-01] MEDS: ACETAMINOPHEN 325MG TABLET PO PRN (13:36)
[2021-04-01 13:53] LABS: BG BASE EXCESS 1.1 mmol/L (-2.0-2.0); BG CARBOXYHEMOGLOBIN 0.4 % (0.5-1.5); BG DEOXYHEMOGLOBIN 20.9 % (0.0-5.0); BG FRACTION INSPIRED OXYGEN 32; BG HCO3 ACT 20.1 mmol/L (22.0-26.0); BG METHEMOGLOBIN 0.3 % (0.0-1.5); BG OXYHEMOGLOBIN 78.4 % (94.0-97.0); BG PCO2 22.4 mmHg (35.0-45.0); BG PH 7.571 (7.350-7.450); BG PO2 37.2 mmHg (75.0-100.0); BG SAMPLE SITE LEFT BRACHIAL; BG VENT MODE NASAL CANNULA
[2021-04-01] MEDS: ENOXAPARIN 40MG/0.4ML SYR SUBCUT SCH (17:24)
[2021-04-02] VITALS: BP 90/43
[2021-04-02] MEDS: METOCLOPRAMIDE HCL 10MG/2ML VIAL IV SCH ×2 (01:07→05:50)
[2021-04-02 04:00] VITALS: BP 78/48
[2021-04-02 04:39] VITALS: BP 78/47
[2021-04-02] MEDS: HYDRALAZINE HCL 10MG TABLET PO SCH (05:20)
[2021-04-02] MEDS: BLOOD SUGAR DIAGNOSTIC STRIP TEST SCH ×2 (05:30→12:10)
[2021-04-02] MEDS: INSULIN LISPRO 100 UNITS/ML SUBCUT SCH ×2 (05:53→12:40)
[2021-04-02 08:00] VITALS: BP 74/48
[2021-04-02] MEDS: ATENOLOL 25MG TABLET PO SCH (09:00)
[2021-04-02] MEDS: DOCUSATE SODIUM SUGAR FREE 100MG/10ML UDC NG SCH (09:00)
[2021-04-02] MEDS: AMLODIPINE 10MG TABLET PO SCH (09:00)
[2021-04-02] MEDS: ASPIRIN 81MG TABLET PO SCH (09:00)
[2021-04-02] MEDS: POLYETHYLENE GLYCOL 3350 (17GM) 1 DOSE PACK PO SCH (09:00)
[2021-04-02] MEDS ORDERED: SODIUM CHLORIDE 0.9% 500 ML IV ONE (10:30)
[2021-04-02] MEDS ORDERED: MORPHINE SULFATE 2 MG/ML CPJ (NOT FOR IM USE) IV PRN (12:15)
[2021-04-02] MEDS: DEXTROSE 50% WATER 50ML SYRINGE IV PRN ×2 (13:09→13:10)
[2021-04-03] MEDS ORDERED: FAMOTIDINE 20MG TABLET PO SCH (21:00)
== END 2021-04-02 13:40 | DRG 45 ==
LOC: ER 10:22 → 8WST 12:58 → UNDOADMIN 12:58 → EDBEDREQ 13:07 → EDBEDREQSVC 13:07 → ENRESERV 20:25 → 8WST 22:43 → UNDODISIN 03-17 13:14
PROVIDERS: ADMIT Hospitalist; ATTEND Hospitalist
PROC: 0DH63UZ Insertion of Feeding Device into Stomach, Percutaneous Approach (ICD-10-PCS; principal; 2021-03-13)
PROC: 0DB68ZX Excision of Stomach, Via Natural or Artificial Opening Endoscopic, Diagnostic (ICD-10-PCS; 2021-03-13)
DX: I63.9 Cerebral infarction, unspecified (principal); J96.00 Acute respiratory failure, unspecified whether with hypoxia or hypercapnia; G93.41 Metabolic encephalopathy; E46 Unspecified protein-calorie malnutrition; I48.92 Unspecified atrial flutter; E11.9 Type 2 diabetes mellitus without complications; E78.00 Pure hypercholesterolemia, unspecified; E78.5 Hyperlipidemia, unspecified; Z66 Do not resuscitate; Z20.822 Contact with and (suspected) exposure to COVID-19; I10 Essential (primary) hypertension; I25.10 Atherosclerotic heart disease of native coronary artery without angina pectoris; K59.00 Constipation, unspecified; E88.09 Other disorders of plasma-protein metabolism, not elsewhere classified; R47.01 Aphasia; R13.12 Dysphagia, oropharyngeal phase; K29.70 Gastritis, unspecified, without bleeding; Z85.038 Personal history of other malignant neoplasm of large intestine; Z90.49 Acquired absence of other specified parts of digestive tract; Z88.8 Allergy status to other drugs, medicaments and biological substances; Z68.27 Body mass index [BMI] 27.0-27.9, adult
CPT/HCPCS: 36415; 36600; 70551; 71045; 80048; 80053; 80061; 80202; 81003; 82040; 82375; 82805; 82962; 83036; 83605; 83735; 84134; 84145; 84484; 85025; 87426; 88305; 88312; 88313; 92610; 93005; 93880; 93970; 95816; 97162; 99285; A6261; C1893; C9113; J0360; J0690; J1100; J1650; J1815; J2060; J2405; J2543; J2704; J2765; J3370; J3490; J7030; J7060